=== PATIENT | male | born 1985 | race African-American/Black ===

== ENCOUNTER 2020-07-06 15:31 | Outpatient (REF) | payer OTHER, SELFPAY | END 2020-07-06 15:32 | disposition home or self-care (01) | LOC: HO.LAB 15:31 | PROVIDERS: Visit Provider Internal Medicine | DX: Z20.828 Contact with and (suspected) exposure to other viral communicable diseases (principal) | CPT/HCPCS: 87635 ==

== ENCOUNTER 2020-07-19 11:28 | Outpatient (REF) | payer OTHER, SELFPAY | END 2020-07-19 11:29 | disposition home or self-care (01) | LOC: HO.LAB 11:28 | PROVIDERS: Visit Provider Internal Medicine | DX: Z20.828 Contact with and (suspected) exposure to other viral communicable diseases (principal) | CPT/HCPCS: C9803; U0003 ==